=== PATIENT | female | born 1995 | race Caucasian/White ===

== ENCOUNTER 2018-05-21 16:32 | Emergency (ER) | payer SELFPAY ==
[2018-05-21 17:01] VITALS: BP 122/71
--- NOTE | 2018-05-21 18:04 | XRay Report ---
FINAL REPORT PROCEDURE: XR KNEE 3V RT TECHNIQUE: Right knee, 3 views HISTORY: RT KNEE PAIN. Right knee pain after moving couch. Pt. stated that she head a "cracking" sound coming from her right knee. COMPARISON: No prior studies are available for comparison. FINDINGS: No acute fracture or dislocation is seen. No focal osseous lesions. No joint effusion. IMPRESSION: No acute fracture or dislocation is seen
--- NOTE | 2018-05-21 18:22 | Emergency Department Report ---
ED Lower Extremity HPI - General Chief Complaint: Extremity Injury, Lower Stated Complaint: RT KNEE PAIN/INJURY Time Seen by Provider: 05/21/18 18:11 Source: patient Mode of arrival: Ambulatory Limitations: No Limitations - History of Present Illness Complaint: knee injury -: Sudden Injury: Knee: Right Type of Injury: other (twisting injury while moving furniture) Severity: moderate Worsens With: movement Associated Symptoms: snap/pop sensation - Related Data Allergies Allergy/AdvReac Type Severity Reaction Status Date / Time No Known Allergies Allergy Unverified 05/21/18 17:01 ED Review of Systems ROS: Stated complaint: RT KNEE PAIN/INJURY Other details as noted in HPI Constitutional: denies: fever, malaise Musculoskeletal: arthralgia. denies: joint swelling Skin: denies: change in color Neurological: denies: numbness, paresthesias ED Past Medical Hx - Past Medical History Previous Medical History?: No - Surgical History Past Surgical History?: No - Social History Smoking Status: Never Smoker Substance Use Type: Alcohol ED Physical Exam - General Limitations: No Limitations General appearance: alert, in no apparent distress - Neck Neck exam: Present: normal inspection - Expanded Lower Extremity Exam Right Knee exam: Present: normal inspection, full ROM, tenderness, full knee extension. Absent: swelling, abrasion, laceration, ecchymosis, deformity, crepidus, dislocation, erythema, effusion, pain/laxity with valgus, pain/laxity with varus ED Course Vital Signs 05/21/18 16:57 Temperature 98.7 F Pulse Rate 59 L Respiratory 20 Rate Blood Pressure 122/71 O2 Sat by Pulse 97 Oximetry ED Lower Extremity MDM - Radiology Data Radiology results: report reviewed No acute process according to radiology report - Medical Decision Making Right knee sprain or popping sensation without dislocation complicated by severe obesity,. I suspect temporary patellar dislocation and spontaneously reduction referred to orthopedic surgeon Recommended ice. Prescribed ibuprofen. Critical care attestation.: If time is entered above; I have spent that time in minutes in the direct care of this critically ill patient, excluding procedure time. ED Disposition Clinical Impression: Right knee sprain Disposition: DC-01 TO HOME OR SELFCARE Is pt being admited?: No Does the pt Need Aspirin: No Condition: Stable Instructions: Knee Sprain (ED) Referrals: KAITLYN RANDHAWA MD [Staff Physician] - as needed Forms: Work/School Release Form(ED)
== END 2018-05-21 18:35 | disposition home or self-care (01) ==
LOC: ED 16:32
DX: S83.91XA Sprain of unspecified site of right knee, initial encounter (principal); X50.9XXA Other and unspecified overexertion or strenuous movements or postures, initial encounter; Y93.89 Activity, other specified; Y92.89 Other specified places as the place of occurrence of the external cause; Y99.8 Other external cause status